=== PATIENT | male | born 1990 | race Two or more races ===

== ENCOUNTER 2017-08-25 02:23 | Emergency (ER) | payer MEDICAID ==
[2017-08-25 02:25] VITALS: BMI 24.3
[2017-08-25 02:42] VITALS: TEMP 98.9
--- NOTE | 2017-08-25 03:02 | ED PDOC ---
HPI: Psych/Substance Abuse Time Seen by Provider: 08/25/17 02:24 Chief Complaint (Nursing): Substance Abuse Chief Complaint (Provider): intoxication ED Caveat: Intoxicated History Per: EMS History/Exam Limitations: intoxication Onset/Duration Of Symptoms: Mins (prior to arrival) Current Symptoms Are (Timing): Still Present Additional Complaint(s): Daniel Chong is a 27 year old male, in police custody, who presents to the emergency department via EMS for evaluation of intoxication status post destroying property in a [employer] store prior to arrival. Unable to obtain history due to combative state and a threat to staff. PMD: none provided Past Medical History Reviewed: Nursing Documentation, Vital Signs Vital Signs: Last Vital Signs Temp 98.9 F 08/25/17 02:35 Pulse 139 H 08/25/17 02:35 Resp 22 08/25/17 02:35 BP 113/67 08/25/17 02:35 Pulse Ox 95 08/25/17 02:35 - Family History Family History: States: Unknown Family Hx - Home Medications Home Medications: Ambulatory Orders Medication Instructions Recorded Amoxicillin 500 mg PO TID #30 tablet 08/25/17 - Allergies Allergies/Adverse Reactions: Allergies Allergy/AdvReac Type Severity Reaction Status Date / Time No Known Allergies Allergy Verified 08/25/17 02:25 Review of Systems Review Of Systems: ROS cannot be obtained secondary to pt's inabilty to answer questions. (intoxication) Physical Exam - Reviewed Nursing Documentation Reviewed: Yes Vital Signs Reviewed: Yes - Physical Exam Head Exam: Negative for: ATRAUMATIC, NORMAL INSPECTION ENT: Positive for: Other (blood in nares; facial abrasions). Negative for: Normal ENT Inspection Cardiovascular/Chest: Positive for: Tachycardia. Negative for: Regular Rate, Rhythm, Chest Non Tender, Bradycardia Respiratory: Negative for: Respiratory Distress Extremity: Positive for: Other (lower extremity abrasions bilaterally) Neurologic/Psych: Positive for: Alert, Mood/Affect (yelling/screaming obscenities to staff; spitting) - Laboratory Results Result Diagrams: 08/25/17 03:15 08/25/17 03:15 - ECG O2 Sat by Pulse Oximetry: 95 (RA) Pulse Ox Interpretation: Normal Medical Decision Making Medical Decision Making: Initial Impression: Intoxication Initial Plan: * CT head without contrast * Acetaminophen * Alcohol serum * BMP * Drug screen, urine * Salicylate * CBC * Haldol 5mg IM * Ativan 2mg IM * Xray facial bones * Urinalysis Time: 0600 --Patient is signed out to Dr. Maira Deng. Pending CT results and clinical sobriety. Scribe Attestation: Documented by America Holbrook, acting as a scribe for Rajendra Heck MD. Provider Scribe Attestation: All medical record entries made by the Scribe were at my direction and personally dictated by me. I have reviewed the chart and agree that the record accurately reflects my personal performance of the history, physical exam, medical decision making, and the department course for this patient. I have also personally directed, reviewed, and agree with the discharge instructions and disposition. Disposition - Clinical Impression Clinical Impression: Alcohol intoxication, Sinusitis - Disposition Referrals: [facility] [Outside] [facility] [Outside] Disposition Time: 06:00 Condition: IMPROVED Additional Instructions: Patient is medically stable and psychiatrically stable for incarceration Prescriptions: Amoxicillin 500 mg PO TID #30 tablet Instructions: Sinusitis (ED), Alcohol Intoxication (ED) Forms: [a][employer] (Iranian) Patient Signed Over To: Maira Deng Handoff Comments: pending sobriety, CT
[2017-08-25 03:25] LABS: BASO % 0.3 % (0.0-2.0); EOS % 0.1 % (0.0-4.0); LYMPH # 3.3 K/uL (1.0-4.3); LYMPH % 34.4 % (20.0-40.0); MEAN CELL VOLUME 95.4 fl (80.0-94.0); MEAN CORPUSCULAR HEMOGLOBIN 31.6 pg (27.0-31.0); MEAN CORPUSCULAR HGB CONC 33.1 g/dL (33.0-37.0); MEAN PLATELET VOLUME 8.6 fl (7.2-11.7); MONO # 0.5 K/uL (0.0-0.8); MONO % 5.6 % (0.0-10.0); NEUT # 5.8 K/uL (1.8-7.0); NEUT % 59.6 % (50.0-75.0); NRBC % 0.1 % (0.0-0.0); RED CELL DISTRIBUTION WIDTH 13.6 % (11.5-14.5); WHITE BLOOD COUNT 9.7 K/uL (4.8-10.8)
[2017-08-25 03:35] LABS: ALCOHOL SERUM 263 mg/dl (0-10); BLOOD UREA NITROGEN 10 mg/dl (9-20); CALCIUM 9.1 mg/dL (8.4-10.2); CARBON DIOXIDE 14 mmol/L (22-30); CHLORIDE 106 mmol/L (98-107); GFR AFRICAN-AMERICAN > 60; GLUCOSE,RANDOM 144 mg/dL (75-110); POTASSIUM 3.2 MMOL/L (3.6-5.0); SODIUM 147 mmol/l (132-148)
[2017-08-25 04:07] LABS: URINE BILIRUBIN NEGATIVE (NEGATIVE); URINE BLOOD SMALL (NEGATIVE); URINE COLOR STRAW (YELLOW); URINE GLUCOSE (UA) NEG (Normal); URINE KETONE NEGATIVE (NEGATIVE); URINE LEUKOCYTE ESTERASE NEG Leu/uL (Negative); URINE PROTEIN NEGATIVE (NEGATIVE); URINE UROBILINOGEN 0.2-1.0 mg/dL (0.2-1.0); WBC URINE 1 /hpf (0-5)
--- NOTE | 2017-08-25 06:02 | ED PDOC ---
- Laboratory Results Result Diagrams: 08/25/17 03:15 08/25/17 03:15 - ECG O2 Sat by Pulse Oximetry: 95 (RA) Pulse Ox Interpretation: Normal - Radiology X-Ray: Read By Radiologist X-Ray Interpretation: Other (evidence of sinus infection on CT scan) - Progress Re-evaluation Time: 09:10 Condition: Re-examined, Improved Medical Decision Making Medical Decision Making: Time: 0600 --Patient was endorsed to provider by Dr. Yan Heck. Pending CT results and clinical sobriety. Time: 606 --CT head FINDINGS: Brain: Unremarkable. No hemorrhage. No significant white matter disease. No edema. Ventricles: Unremarkable. No ventriculomegaly. Bones/joints: Unremarkable. No acute fracture. Soft tissues: Unremarkable. Sinuses: There is aerosolized mucous with the left maxillary sinus consistent with an acute component. Mild mucosal thickening within the left maxillary sinus. Mastoid air cells: Unremarkable as visualized. No mastoid effusion. IMPRESSION: There is aerosolized mucous with the left maxillary sinus consistent with an acute component. No acute intracranial abnormality. Time: 06 --CT maxillofacial FINDINGS: Bones/joints: No acute fracture. Soft tissues: Unremarkable. Orbits: Unremarkable. Sinuses: There is aerosolized mucous with the left maxillary sinus consistent with an acute component. Mild/moderate mucosal disease within the left maxillary sinus. Minimal mucosal disease within the right maxillary sinus. No air-fluid levels. IMPRESSION: There is aerosolized mucous with the left maxillary sinus consistent with an acute component. No acute fracture. Scribe Attestation: Documented by America Holbrook, acting as a scribe for Rajendra Heck MD. Provider Scribe Attestation: All medical record entries made by the Scribe were at my direction and personally dictated by me. I have reviewed the chart and agree that the record accurately reflects my personal performance of the history, physical exam, medical decision making, and the department course for this patient. I have also personally directed, reviewed, and agree with the discharge instructions and disposition. Patient is awake and alert. Denies hallucinations, suicidal and homicidal ideations. Will discharge to law enforcement. Disposition Doctor Will See Patient In The: Office Counseled Patient/Family Regarding: Diagnosis, Need For Followup, Rx Given - Clinical Impression Clinical Impression: Alcohol intoxication, Sinusitis - POA Present On Arrival: Falls Or Trauma - Disposition Referrals: [facility] [Outside] [facility] [Outside] Disposition: Discharged/Transfer to Law Enforcement Disposition Time: 09:00 Condition: IMPROVED Additional Instructions: Patient is medically stable and psychiatrically stable for incarceration Prescriptions: Amoxicillin 500 mg PO TID #30 tablet Instructions: Alcohol Intoxication (ED), Sinusitis (ED) Forms: [facility] ([place])
--- NOTE | 2017-08-25 08:32 | CT ---
PROCEDURE: CT HEAD WITHOUT CONTRAST. HISTORY: intox, head trauma COMPARISON: None available. TECHNIQUE: Axial computed tomography images were obtained through the head/brain without intravenous contrast. Radiation dose: Total exam DLP = 1111.12 mGy-cm. This CT exam was performed using one or more of the following dose reduction techniques: Automated exposure control, adjustment of the mA and/or kV according to patient size, and/or use of iterative reconstruction technique. FINDINGS: Mild streak artifact obscures evaluation of the skullbase. HEMORRHAGE: No intracranial hemorrhage. BRAIN: No mass effect or edema. The medellin-white matter differentiation appears intact. Please note that MRI with diffusion imaging is more sensitive in the detection of acute ischemic event. VENTRICLES: No hydrocephalus. CALVARIUM: Unremarkable. PARANASAL SINUSES: Mucosal thickening of the left maxillary sinus. MASTOID AIR CELLS: Unremarkable as visualized. No inflammatory changes. OTHER FINDINGS: Mild partial opacification of bilateral external auditory canals, likely cerumen. IMPRESSION: No acute intracranial pathology identified. Mucosal thickening of the left maxillary sinus. Preliminary impression was provided by virtual radiologic.
--- NOTE | 2017-08-25 08:46 | CT ---
CT maxillofacial bones without IV contrast Indication: intox, head trauma Comparison: None available. Technique: Axial computed tomography images were obtained of the maxillofacial bones without the use of intravenous contrast. Coronal and sagittal reformatted images were generated and reviewed. This CT exam was performed using 1 or more of the falling dose reduction techniques: Automated exposure control, adjustment of the MAA and/or kV according to patient size, and/or use of iterative reconstruction technique. Radiation dose: Total exam DLP = 857.37 mGy-cm. Findings: The facial bones appear unremarkable intact without acute fracture. The orbits appear unremarkable. The mastoid air cells appear clear. Mild to moderate mucosal thickening of the left maxillary sinus. Mild mucosal thickening of the right maxillary sinus. The paranasal sinuses appear otherwise clear without air-fluid levels. The temporomandibular joints are located. Mild partial opacification bilateral external auditory canals, likely cerumen. The visualized brain appears unremarkable. Impression: Mucosal thickening involving the [id number]-right maxillary sinuses; correlate clinically for sinusitis. Preliminary impression was provided by virtual radiologic.
[2017-08-25 09:29] VITALS: BP 126/80; PULSE 68; RESP 18
[2017-08-27 19:38] VITALS: O2SAT 95
== END 2017-08-25 09:30 | disposition home or self-care (01) ==
LOC: H.ER 02:23
DX: F10.129 Alcohol abuse with intoxication, unspecified (principal); J32.9 Chronic sinusitis, unspecified; R00.0 Tachycardia, unspecified; S00.31XA Abrasion of nose, initial encounter; S80.812A Abrasion, left lower leg, initial encounter; Y35.813A Legal intervention involving manhandling, suspect injured, initial encounter; Y92.89 Other specified places as the place of occurrence of the external cause; R45.1 Restlessness and agitation
CPT/HCPCS: 70450; 70486; 80048; 80320; 80324; 80329; 80345; 80346; 80349; 80353; 80358; 80361; 81003; 82553; 82948; 83992; 85025; 96372; 99285; J1630; J2060